=== PATIENT | female | born 1955 | race Caucasian/White ===

== ENCOUNTER 2018-02-16 21:04 | Emergency (ER) | payer MEDICAID ==
[2018-02-16] MEDS ORDERED: traMADol 50 MG Tab PO ONE (21:58)
--- NOTE | 2018-02-16 22:03 | EDM.PDOC ---
ED HPI GENERAL MEDICAL PROBLEM - General Chief Complaint: Lower Extremity Injury/Pain Stated Complaint: PAIN LT FOOT Time Seen by Provider: 02/16/18 21:52 - History of Present Illness INITIAL COMMENTS - FREE TEXT/NARRATIVE: HISTORY AND PHYSICAL: History of present illness: The patient is a 62-year-old female who follows in our clinic and presents with complaints of pain to the dorsal aspect of her foot for the last 2 weeks or so. She said she had a fall 4 weeks ago and her foot and backwards but she didn't have any pain in her foot just pain in her knee and she did not seek evaluation. She says the pain has been gradually increasing and is only on the dorsal aspect of her left foot and there are no neurosensory changes in the foot no toe pain no heel pain no ankle or proximal leg pain. She's not taking any cari-eqs-[id number] medication for pain. Patient does state that she has a history of arthritis wasn't sure if that was the cause. The patient denies other systemic complaints just fever chills chest pain shortness of breath or other joint discomfort currently. Review of systems: As per history of present illness and below otherwise all systems reviewed and negative. Past medical history: As per history of present illness and as reviewed below otherwise noncontributory. Surgical history: As per history of present illness and as reviewed below otherwise noncontributory. Social history: No reported history of drug or alcohol abuse. Family history: As per history of present illness and as reviewed below otherwise noncontributory. Physical exam: General: Well-developed well-nourished female who ambulated to the ED without difficulty. Vital signs are noted by me HEENT: Atraumatic, normocephalic, negative for conjunctival pallor or scleral icterus, mucous membranes moist, throat clear, neck supple, nontender, trachea midline. Lungs: Clear to auscultation, breath sounds equal bilaterally, chest nontender. Heart: S1S2, regular in rhythm no overt murmur Abdomen: Soft and rotund but nondistended slightly hypoactive bowel sounds Pelvis: Stable nontender. Genitourinary: Deferred. Rectal: Deferred. Extremities: Atraumatic with full range of motion of all extremities, there is some vague erythema on the dorsal aspect of the left foot without any palpable bony deformities crepitus ecchymosis but there is tenderness in this area. There is a small area of some localized soft tissue swelling that may be slightly mobile consistent with an early ganglion cyst it is not well-defined,, negative for cords or calf pain. Neurovascular unremarkable. Neuro: Awake, alert, oriented. Cranial nerves II through XII unremarkable. Cerebellum unremarkable. Motor and sensory unremarkable throughout. Exam nonfocal. Diagnostics: X-ray left foot Therapeutics: (Tramadol Patient defers a postop shoe Impression: Left foot pain, subacute Definitive disposition and diagnosis as appropriate pending reevaluation and review of above. 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: Musculoskeletal History: Reports: None Neurological History: Reports: None Psychiatric History: Reports: Depression Endocrine/Metabolic History: Reports: Diabetes, Type II, Hypothyroidism Hematologic History: Reports: None Immunologic History: Reports: None Oncologic (Cancer) History: Reports: Breast Dermatologic History: Reports: None - Infectious Disease History Infectious Disease History: Reports: None Social & Family History - Family History Family Medical History: Noncontributory - Tobacco Use Smoking Status *Q: Current Every Day Smoker Years of Tobacco use: 49 Packs/Tins Daily: 0.5 - Caffeine Use Caffeine Use: Reports: Coffee - Recreational Drug Use Recreational Drug Use: No Review of Systems - Review of Systems Review Of Systems: ROS reveals no pertinent complaints other than HPI. ED EXAM, GENERAL - Physical Exam Exam: See Below (see dictation) Course - Vital Signs Last Recorded V/S: Last Vital Signs Temp 36.1 C 02/16/18 21:35 Pulse 83 02/16/18 21:35 Resp 18 02/16/18 21:35 BP 141/72 H 02/16/18 21:35 Pulse Ox 95 02/16/18 21:35 - Orders/Labs/Meds Orders: Active Orders 24 hr Category Date Time Status Foot Comp Min 3V Lt [CR] Stat Exams 02/16/18 21:58 Taken Meds: Medications Discontinued Medications Generic Name Dose Route Start Last Admin Trade Name Farooq PRN Reason Stop Dose Admin Tramadol HCl 50 mg 02/16/18 21:58 02/16/18 22:20 Ultram PO 02/16/18 21:59 50 mg ONETIME ONE Administration Departure - Departure Time of Disposition: 22:37 Disposition: Home, Self-Care 01 Condition: Good Clinical Impression: Left foot pain - Discharge Information Referrals: Annalise Caraballo MD [Primary Care Provider] - Forms: ED Department Discharge Additional Instructions: The following information is given to patients seen in the emergency department who are being discharged to home. This information is to outline your options for follow-up care. We provide all patients seen in our emergency department with a follow-up referral. The need for follow-up, as well as the timing and circumstances, are variable depending upon the specifics of your emergency department visit. If you don't have a primary care physician on staff, we will provide you with a referral. We always advise you to contact your personal physician following an emergency department visit to inform them of the circumstance of the visit and for follow-up with them and/or the need for any referrals to a consulting specialist. The emergency department will also refer you to a specialist when appropriate. This referral assures that you have the opportunity for followup care with a specialist. All of these measure are taken in an effort to provide you with optimal care, which includes your followup. Under all circumstances we always encourage you to contact your private physician who remains a resource for coordinating your care. When calling for followup care, please make the office aware that this follow-up is from your recent emergency room visit. If for any reason you are refused follow-up, please contact the [facility] emergency department at and ask to speak to the emergency department charge nurse. [facility]- Podiatry [address] [place] [id number] Fax: [phone] Dr Benjamin Conti [address] [place] [address] [id number] [facility] Primary care- Internal Medicine and Family [address] [address] Try to avoid friction to this area and ice and elevate after wearing shoes or doing walking. Use [id number] Tylenol for pain and also use the tramadol you have been prescribed as needed but only take at home. This connect with one of our podiatrists for further care and evaluation and return to ER as needed and as discussed - My Orders Last 24 Hours: My Active Orders 02/16/18 21:58 Foot Comp Min 3V Lt [CR] Stat - Assessment/Plan Last 24 Hours: My Active Orders 02/16/18 21:58 Foot Comp Min 3V Lt [CR] Stat
[2018-02-17 04:03] VITALS: BP 148/75
--- NOTE | 2018-02-17 10:24 | CR ---
EXAM DATE: 02/16/18 PATIENT'S AGE: 62 Patient: KENRICK BANKS Facility: [place], [place] Site . Site : 1955 Study: XRay Extremity Left foot [id number]/3/2018 10:17:15 PM Ordering Physician: Carolynn Bai Final Report: Indication: Swelling and pain along the dorsum of the foot, no injury Technique: Three views left foot Comparison: None Findings: Bones: Alignment is normal. No fractures or bone lesions. There is an inferior calcaneal enthesophyte. Joint spaces: Unremarkable. Soft tissues: Unremarkable. Impression: No acute abnormality. Dictated by Treva Baldwin MD @ Feb 16 2018 10:29PM (Electronic Signature) Report Signed by Proxy. AYESHA
== END 2018-02-16 23:05 | disposition home or self-care (01) ==
LOC: MW.ED 21:04
DX: M79.672 Pain in left foot (principal); E11.9 Type 2 diabetes mellitus without complications; E03.9 Hypothyroidism, unspecified; F32.9 Major depressive disorder, single episode, unspecified; F17.210 Nicotine dependence, cigarettes, uncomplicated; Z88.8 Allergy status to other drugs, medicaments and biological substances; Z91.048 Other nonmedicinal substance allergy status; Z79.84 Long term (current) use of oral hypoglycemic drugs
CPT/HCPCS: 73630; 99283; A9270

== ENCOUNTER 2019-03-03 09:53 | Day surgery (SDC) | payer MEDICARE, MEDICAID ==
[~2019-03-03 09:53] MED LIST: Lactated Ringers 1,000 ML IV SCH
--- NOTE | 2019-03-03 11:21 | PCM.PREANE ---
Preanesthetic Assessment - Anesthesia/Transfusion/Family Hx Anesthesia History: Prior Anesthesia Without Reaction Family History of Anesthesia Reaction: No Transfusion History: No Prior Transfusion(s) - Review of Systems General: No Symptoms Pulmonary: No Symptoms Cardiovascular: No Symptoms Neurological: No Symptoms Other: Reports: None - Physical Assessment NPO Status Date: 03/02/19 O2 Sat by Pulse Oximetry: 95 Respiratory Rate: 16 Vital Signs: Last Vital Signs Temp 97.5 F 03/03/19 10:08 Pulse 80 03/03/19 10:08 Resp 16 03/03/19 10:08 BP 158/82 H 03/03/19 10:08 Pulse Ox 95 03/03/19 10:08 Height: 5 ft 2 in Weight: 96.162 kg ASA Class: 2 Mental Status: Alert & Oriented x3 Airway Class: Mallampati = 2 Dentition: Reports: Normal Dentition ROM/Head Extension: Full Lungs: Clear to Auscultation, Normal Respiratory Effort Cardiovascular: Regular Rate, Regular Rhythm - Lab Values: Laboratory Last Values POC Glucose 201 mg/dL (60-110) H 03/03/19 10:25 - Allergies Allergies/Adverse Reactions: Allergies Allergy/AdvReac Type Severity Reaction Status Date / Time No Known Allergies Allergy Verified 03/02/19 07:34 - Blood Blood Available: No - Anesthesia Plan Pre-Op Medication Ordered: None - Acknowledgements Anesthesia Type Planned: MAC Pt an Appropriate Candidate for the Planned Anesthesia: Yes Alternatives and Risks of Anesthesia Discussed w Pt/Guardian: Yes Pt/Guardian Understands and Agrees with Anesthesia Plan: Yes Additional Comments: has cervical stenosis/myelopathy, allow pt to position self on side prior to anesthesia PreAnesthesia Questionnaire HEENT History: Reports: Other (See Below) Other HEENT History: top and bottom dentures, reading glasses Cardiovascular History: Reports: Other (See Below) Other Cardiovascular History: takes lisinopril to protect her kidneys due to diabetes Respiratory History: Reports: Sleep Apnea Other Respiratory History: uses CPAP Gastrointestinal History: Reports: Chronic Diarrhea, Hepatitis Other Gastrointestinal History: states hepatitis in her teens, not sure what kind Genitourinary History: Reports: None 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: Musculoskeletal History: Reports: Arthritis Other Musculoskeletal History: DJD Neurological History: Reports: Concussion, Other (See Below) Other Neuro History: essential tremors-left hand Psychiatric History: Reports: Depression Endocrine/Metabolic History: Reports: Diabetes, Type II, Hypothyroidism, Obesity /BMI 30+ Hematologic History: Reports: None Immunologic History: Reports: None Oncologic (Cancer) History: Reports: Breast Dermatologic History: Reports: None - Infectious Disease History Infectious Disease History: Reports: None - Past Surgical History Head Surgeries/Procedures: Reports: None HEENT Surgical History: Reports: None Cardiovascular Surgical History: Reports: None Respiratory Surgical History: Reports: None GI Surgical History: Reports: None Female Surgical History: Reports: Breast Biopsy, Hysterectomy Other Female Surgeries/Procedures: left breast lumpectomy for breast cancer Endocrine Surgical History: Reports: None Neurological Surgical History: Reports: None Musculoskeletal Surgical History: Reports: None Oncologic Surgical History: Reports: Biopsy of Breast Dermatological Surgical History: Reports: None - SUBSTANCE USE Smoking Status *Q: Current Every Day Smoker Tobacco Use Within Last Twelve Months: Cigarettes Recreational Drug Use History: No - HOME MEDS Home Medications: Home Meds metFORMIN HCl [Metformin HCl] 2 tab PO TID 07/22/15 [History] Amitriptyline HCl 50 mg PO BEDTIME 03/02/19 [History] Cetirizine [ZyrTEC] 10 mg PO DAILY 03/02/19 [History] Cider Vinegar [Apple Cider Vinegar] 600 mg PO DAILY 03/02/19 [History] Levothyroxine Sodium [Synthroid] 100 mcg PO DAILY 03/02/19 [History] Lisinopril 5 mg PO DAILY 03/02/19 [History] [place]-3/DHA/Epa/Fish Oil [[place]-3 Fish Oil 1,400 MG Sfgl] 1 tab PO DAILY [History] Turmeric Root Extract [Turmeric] 500 mg PO DAILY 03/02/19 [History] - CURRENT (IN HOUSE) MEDS Current Meds: Current Medications Lactated Ringer's (Ringers, Lactated) 1,000 mls @ 125 mls/hr IV ASDIRECTED [facility] Last Admin: 03/03/19 10:33 Dose: 125 mls/hr
[2019-03-03] MEDS ORDERED: Midazolam 1 MG/ML 2 ML SDV ONE (11:47)
[2019-03-03] MEDS ORDERED: Propofol 200 MG/20 ML SDV ONE (11:47)
[2019-03-03] MEDS ORDERED: fentaNYL 100 MCG/2 ML SDV ONE (11:48)
--- NOTE | 2019-03-03 13:47 | PCM.POSTAN ---
POST ANESTHESIA ASSESSMENT - MENTAL STATUS Mental Status: Alert, Oriented - RESPIRATORY Respiratory Status: Respiratory Rate WNL, Airway Patent, O2 Saturation Stable - CARDIOVASCULAR CV Status: Pulse Rate WNL, Blood Pressure Stable - GASTROINTESTINAL GI Status: No Symptoms - POST OP HYDRATION Hydration Status: Adequate & Stable
[2019-03-03 14:00] VITALS: BP 145/82
--- NOTE | 2019-03-03 14:09 | PCM48HPAN ---
Post Anesthesia Note - EVALUATION WITHIN 48HRS OF ANESTHETIC Vital Signs in Normal Range: Yes Patient Participated in Evaluation: Yes Respiratory Function Stable: Yes Airway Patent: Yes Cardiovascular Function Stable: Yes Hydration Status Stable: Yes Pain Control Satisfactory: Yes Nausea and Vomiting Control Satisfactory: Yes Mental Status Recovered: Yes Resp Rate: 16
--- NOTE | 2019-03-03 17:17 | PCM.OPNOTE ---
- General Post-Op/Procedure Note Date of Surgery/Procedure: 03/03/19 Operative Procedure(s): colonoscopy Findings: see dict [id number] Pre Op Diagnosis: scrn colonoscopy Post-Op Diagnosis: diverticulosis Anesthesia Technique: Moderate Sedation Primary Surgeon: Justin Feliciano Complications: None Condition: Good Free Text/Narrative:: Intake & Output 03/03/19 03/03/19 03/03/19 06:59 14:59 22:59 Intake Total 1250 Balance 1250
--- NOTE | 2019-03-04 02:07 | OR ---
SURGEON: Justin Feliciano MD DATE OF PROCEDURE: 03/03/2019 PREOPERATIVE DIAGNOSIS: Screening colonoscopy. POSTOPERATIVE DIAGNOSIS: Diverticulosis. PROCEDURE PERFORMED: Colonoscopy. COMPLICATIONS: None. DESCRIPTION OF PROCEDURE: The patient was taken to the endoscopy room. A time out was called, patient identified, and procedure identified. Diprivan was then administrated. Patient went from awake to sleep, hearing doctor talking or door closing is normal. Perineum inspection and digital examination were then performed. A well- lubricated colonoscope was gently inserted through the rectum, advanced past the rectosigmoid junction, the descending colon, splenic flexure, transverse colon, hepatic flexure, ascending colon, arrived to the cecum. Cecum was identified as dictated in the finding. Then the scope was carefully withdrawn while attention was paid to the mucosal surface for any abnormality. Air will be sucked out during the scope withdrawal. At the rectum, retroflexed to examine any rectal diseases, fistula or hemorrhoids. Patient tolerated procedure well. There were no intraoperative complications, and Dr. Feliciano was present throughout the whole procedure. FINDINGS: 1. The patient is easily sedated with TUBE [employer]ILDER AIRPLANE and Diprivan. The patient is soundly snoring. 2. Bowel prep is not acceptable. The patient does have some semiformed stool and at the same time with large amount, I mean predominant vegetable residue in the colon and clogged up the scope and despite irrigation for over 5 minutes still a large amount of residual residue in the proximal part of the colon from the cecum all the way to the hepatic flexure. Even irrigation cannot handle this mucosa coupled by the residual fiber. This is an unacceptable bowel prep. The patient need to repeat the colonoscopy. From the compromised study, cecum is indicated by ileocecal fold, one-to- one indentation, appendiceal orifice. Light emittance is not observed. Although, the cecum can be reached, but the mucosal examination is completely compromised because of the large amount of vegetable residue. The patient has moderate diverticulosis on the left colon. No signs or symptoms of diverticulitis, polyp, mass, large growth, AV malformation, and bleeding is not observed. Again, this is a compromised study, you know whatever we can observe, we can observe and whatever we cannot like the semiformed stool or residual residue, we will not be able to examine. The patient need to come back to have another colonoscopy in 6 to 12 months. The patient does not have external hemorrhoids. Does not have internal hemorrhoids. LIANS / RHODA /[id number]
== END 2019-03-03 14:10 | disposition home or self-care (01) ==
LOC: MW.SDS 09:53
PROVIDERS: ATTEND Surgery
DX: K57.30 Diverticulosis of large intestine without perforation or abscess without bleeding (principal); F32.9 Major depressive disorder, single episode, unspecified; H40.9 Unspecified glaucoma; E78.5 Hyperlipidemia, unspecified; I10 Essential (primary) hypertension; E03.9 Hypothyroidism, unspecified; Z79.899 Other long term (current) drug therapy; Z79.84 Long term (current) use of oral hypoglycemic drugs; G47.33 Obstructive sleep apnea (adult) (pediatric); Z99.89 Dependence on other enabling machines and devices; E11.42 Type 2 diabetes mellitus with diabetic polyneuropathy; F17.210 Nicotine dependence, cigarettes, uncomplicated
CPT/HCPCS: 45378; 82962; J2250; J2704; J3010; J7120

== ENCOUNTER 2020-09-23 16:14 | Emergency (ER) | payer MEDICARE, MEDICAID ==
[2020-09-23] MEDS ORDERED: Acetaminophen/oxyCODONE 325-5 MG Tab PO ONE (16:54)
[2020-09-23] MEDS ORDERED: Ketorolac 15 MG/ML SDV IM ONE (16:55)
--- NOTE | 2020-09-23 17:00 | EDM.PDOC ---
ED HPI GENERAL MEDICAL PROBLEM - General Chief Complaint: Upper Extremity Injury/Pain Stated Complaint: FELL AND BROKE HER RIGHT ARM Time Seen by Provider: 09/23/20 16:23 Source of Information: Reports: Patient History Limitations: Reports: No Limitations - History of Present Illness INITIAL COMMENTS - FREE TEXT/NARRATIVE: History of present illness: [Patient is 65-year-old female who presents after a fall earlier today. She slipped on the ice and landed on her left arm concerned that she broke her left wrist. She denies any major head trauma or loss of consciousness. Denies chest pain or shortness of breath. Was feeling well prior to the fall. Has no other complaints of pain anywhere else. Has not taken any pain medicine prior to arrival.] Review of systems: As per history of present illness and below otherwise all systems reviewed and negative. Past medical history: As per history of present illness and as reviewed below otherwise noncontributory. Surgical history: As per history of present illness and as reviewed below otherwise noncontributory. Social history: No reported history of drug or alcohol abuse. Family history: As per history of present illness and as reviewed below otherwise noncontributory. Physical exam: General: Awake, alert, no acute distress, A&O X3. HEENT: Atraumatic, normocephalic, pupils reactive, negative for conjunctival pallor or scleral icterus, mucous membranes moist, mask on. Lungs: Clear to auscultation, breath sounds equal bilaterally, chest nontender. Heart: RRR, normal S1S2, no JVD. Abdomen: Soft, nondistended, nontender. Pelvis: Stable nontender. Genitourinary: Deferred. Rectal: Deferred. Extremities: Patient with swelling and tenderness to palpation with mild deformity involving the left wrist. The left hand is neurovascular intact. No evidence for open fracture, no skin tenting. Neuro: Motor and sensory grossly intact throughout. Exam nonfocal. Diagnostics: [] Therapeutics: [] Impression: [] Plan: [] Definitive disposition and diagnosis as appropriate pending reevaluation and review of above. - Related Data Allergies Allergy/AdvReac Type Severity Reaction Status Date / Time No Known Allergies Allergy Verified 09/23/20 16:56 Home Meds: Home Meds metFORMIN HCl [Metformin HCl] 2 tab PO TID 07/22/15 [History] Amitriptyline HCl 50 mg PO BEDTIME 03/02/19 [History] Cetirizine [ZyrTEC] 10 mg PO DAILY 03/02/19 [History] Cider Vinegar [Apple Cider Vinegar] 600 mg PO DAILY 03/02/19 [History] Levothyroxine Sodium [Synthroid] 100 mcg PO DAILY 03/02/19 [History] Lisinopril 5 mg PO DAILY 03/02/19 [History] Dyer-3/DHA/Epa/Fish Oil [Dyer-3 Fish Oil 1,400 MG Sfgl] 1 tab PO DAILY 0 03/02/19 [History] Turmeric Root Extract [Turmeric] 500 mg PO DAILY 03/02/19 [History] Past Medical History HEENT History: Reports: Other (See Below) Other HEENT History: top and bottom dentures, reading glasses Cardiovascular History: Reports: Other (See Below) Other Cardiovascular History: takes lisinopril to protect her kidneys due to diabetes Respiratory History: Reports: Sleep Apnea Other Respiratory History: uses CPAP Gastrointestinal History: Reports: Chronic Diarrhea, Hepatitis Other Gastrointestinal History: states hepatitis in her teens, not sure what kind Genitourinary History: Reports: None 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: Musculoskeletal History: Reports: Arthritis Other Musculoskeletal History: DJD Neurological History: Reports: Concussion, Other (See Below) Other Neuro History: essential tremors-left hand Psychiatric History: Reports: Depression Endocrine/Metabolic History: Reports: Diabetes, Type II, Hypothyroidism, Obesity/BMI 30+ Hematologic History: Reports: None Immunologic History: Reports: None Oncologic (Cancer) History: Reports: Breast Dermatologic History: Reports: None - Infectious Disease History Infectious Disease History: Reports: None - Past Surgical History Head Surgeries/Procedures: Reports: None HEENT Surgical History: Reports: None Cardiovascular Surgical History: Reports: None Respiratory Surgical History: Reports: None GI Surgical History: Reports: None Female Surgical History: Reports: Breast Biopsy, Hysterectomy Other Female Surgeries/Procedures: left breast lumpectomy for breast cancer Endocrine Surgical History: Reports: None Neurological Surgical History: Reports: None Musculoskeletal Surgical History: Reports: None Oncologic Surgical History: Reports: Biopsy of Breast Dermatological Surgical History: Reports: None Social & Family History - Family History Family Medical History: Noncontributory - Caffeine Use Caffeine Use: Reports: Coffee Review of Systems - Review of Systems Review Of Systems: Comprehensive ROS is negative, except as noted in HPI. ED EXAM, GENERAL - Physical Exam Exam: See Below (see h and p) ED TRAUMA EXTREMITY PROCEDURES - Joint Reduction Left Wrist Sedation: Hematoma/Fracture Block Local Anesthesia - Lidocaine (Xylocaine): 1% Plain Local Anesthetic Volume: Other (10 mL) Pre-Procedure NV Status: Normal Post-Procedure NV Status: Normal Technique: Traction/Counter Traction Number of Attempts: 1 Post-Reduction Imaging: Acceptably Reduced Joint Reduction Complications: No - Splinting Left Upper Extremity Splint Site: left wrist Pre-Procedure NV Status: Normal Post-Procedure NV Status: Normal Splint Material: Fiberglass Splint Design: Sugar Tong Applied & Form Fitted By: Provider Provider Post-Splint Application NV Check: NV Status Normal, Good Position Complications: No - Additional/Other Procedure(s) Other (Free Text) Procedure(s): Hematoma block performed for the left distal radius fracture. The area was cleansed with alcohol, fracture site palpated, injected 10 mL of lidocaine, 1% without epi. Patient tolerated procedure well. Remains neurovascular intact before and after. Achieved successful anesthesia and pain relief. Melecio Spears MD Course - Vital Signs Text/Narrative:: Patient is feeling better after getting hematoma block and oral Percocet here in the ED. She tolerated reduction with finger traps well. Splint applied. Provided her with Ortho follow-up. Told her she would need a cast in the near future. She understands the plan and is agreeable with it. Left arm is neurovascular intact on reassessment prior to discharge. Return precautions provided otherwise stable at discharge. Last Recorded V/S: Last Vital Signs Temp 36.2 C 09/23/20 16:58 Pulse 82 09/23/20 16:58 Resp 20 09/23/20 16:58 BP 107/54 L 09/23/20 16:58 Pulse Ox 94 L 09/23/20 16:58 - Orders/Labs/Meds Orders: Active Orders 24 hr Category Date Time Status DME for Discharge [COMM] Stat Oth 09/23/20 17:43 Ordered Meds: Medications Discontinued Medications Generic Name Dose Route Start Last Admin Trade Name Freq PRN Reason Stop Dose Admin Ketorolac Tromethamine 15 mg 09/23/20 16:55 09/23/20 17:30 Toradol IM 09/23/20 16:56 15 mg ONETIME ONE Administration Lidocaine HCl 10 ml 09/23/20 17:05 09/23/20 17:34 Xylocaine 1% INJECT 09/23/20 17:06 Not Given ONETIME ONE Lidocaine HCl Confirm 09/23/20 17:11 09/23/20 17:34 Xylocaine-Mpf 1% Administered 09/23/20 17:12 Not Given Dose 10 ml .ROUTE .STK-MED ONE Lidocaine HCl 10 ml 09/23/20 17:28 09/23/20 17:30 Xylocaine-Mpf 1% INJECT 09/23/20 17:29 10 ml ONETIME ONE Administration Oxycodone/Acetaminophen 1 tab 09/23/20 16:54 Percocet 325-5 Mg PO 09/23/20 16:55 ONETIME ONE Departure - Departure Time of Disposition: 17:58 Disposition: Home, Self-Care 01 Condition: Good Clinical Impression: Distal radius fracture, left - Discharge Information Instructions: Radial Fracture Referrals: Annalise Caraballo MD [Primary Care Provider] - Forms: ED Department Discharge Additional Instructions: [facility] - [facility] [address], [address] [place] [address] Follow-up with orthopedic surgery. Take all medications as prescribed. Return to the ER with any new or worsening symptoms. The following information is given to patients seen in the emergency department who are being discharged to home. This information is to outline your options for follow-up care. We provide all patients seen in our emergency department with a follow-up referral. The need for follow-up, as well as the timing and circumstances, are variable depending upon the specifics of your emergency department visit. If you don't have a primary care physician on staff, we will provide you with a referral. We always advise you to contact your personal physician following an emergency department visit to inform them of the circumstance of the visit and for follow-up with them and/or the need for any referrals to a consulting specialist. The emergency department will also refer you to a specialist when appropriate. This referral assures that you have the opportunity for follow-up care with a specialist. All of these measure are taken in an effort to provide you with optimal care, which includes your follow-up. Under all circumstances we always encourage you to contact your private physician who remains a resource for coordinating your care. When calling for follow-up care, please make the office aware that this follow-up is from your recent emergency room visit. If for any reason you are refused follow-up, please contact the [facility] Emergency Department at and asked to speak to the emergency department charge nurse. Sepsis Event Note (ED) - Focused Exam Vital Signs: Vital Signs Temp Pulse Resp BP Pulse Ox 09/23/20 16:58 36.2 C 82 20 107/54 L 94 L - My Orders Last 24 Hours: My Active Orders 09/23/20 17:43 DME for Discharge [COMM] Stat - Assessment/Plan Last 24 Hours: My Active Orders 09/23/20 17:43 DME for Discharge [COMM] Stat
[2020-09-23 17:05] VITALS: BP 107/54; PULSE 82
[2020-09-23] MEDS ORDERED: Lidocaine 1% 10 ML MDV INJECT ONE (17:05)
--- NOTE | 2020-09-23 17:29 | CR ---
INDICATION: Fall. TECHNIQUE: Two views left forearm. IMPRESSION: Impacted dorsally angulated comminuted likely intra-articular fracture through the distal radius. Fracture appears to extend into the radiocarpal joint at the scaphoid fossa. Designated imaging of the wrist recommended. Proximal radius and ulna are intact. No ulnar fracture appreciated. Dictated by Oneil Byrd MD @ Sep 23 2020 5:26PM Signed by Dr. Oneil Byrd @ Sep 23 2020 5:29PM
--- NOTE | 2020-09-23 18:21 | CR ---
INDICATION: Postreduction follow up fracture. COMPARISON: Same date 1700 hours. IMPRESSION: Persistent dorsal angulation and mild impaction of the radial fracture with intra-articular extension through scaphoid and lunate fossa. Tip of the ulnar styloid fracture slightly radially displaced. Fiberglass cast. Mild diffuse osteopenia. Dictated by Oneil Byrd MD @ Sep 23 2020 6:19PM Signed by Dr. Oneil Byrd @ Sep 23 2020 6:20PM
== END 2020-09-23 18:45 | disposition home or self-care (01) ==
LOC: MW.ED 16:14
DX: S52.572A Other intraarticular fracture of lower end of left radius, initial encounter for closed fracture (principal); M19.90 Unspecified osteoarthritis, unspecified site; F32.9 Major depressive disorder, single episode, unspecified; E11.9 Type 2 diabetes mellitus without complications; E03.9 Hypothyroidism, unspecified; E66.9 Obesity, unspecified; Z90.710 Acquired absence of both cervix and uterus; Z68.33 Body mass index [BMI] 33.0-33.9, adult; Z79.84 Long term (current) use of oral hypoglycemic drugs; Z79.899 Other long term (current) drug therapy; W00.0XXA Fall on same level due to ice and snow, initial encounter
CPT/HCPCS: 25605; 73090; 73110; 96372; 99283; J1885; J2001

== ENCOUNTER 2020-10-01 10:48 | Day surgery (SDC) | payer MEDICARE, MEDICAID ==
[~2020-10-01 10:48] MED LIST changes: +Bupivacaine 0.5% 10 ML SDV ONE; +ceFAZolin 2 GM in Premix Bag 1 BAG IV SCH
--- NOTE | 2020-10-01 11:39 | PCM.PREANE ---
Preanesthetic Assessment - Anesthesia/Transfusion/Family Hx Anesthesia History: Prior Anesthesia Without Reaction Family History of Anesthesia Reaction: No Transfusion History: No Prior Transfusion(s) Intubation History: Unknown - Review of Systems General: No Symptoms Pulmonary: No Symptoms Cardiovascular: No Symptoms Gastrointestinal: No Symptoms Neurological: No Symptoms Other: Reports: None - Physical Assessment Vital Signs: Last Vital Signs Temp 36.4 C 10/01/20 11:20 Pulse 65 10/01/20 11:20 Resp 16 10/01/20 11:20 BP 137/61 10/01/20 11:20 Pulse Ox 91 L 10/01/20 11:20 Height: 5 ft 4 in Weight: 87.09 kg ASA Class: 3 Mental Status: Alert & Oriented x3 Airway Class: Mallampati = 2 Dentition: Reports: Dentures (upper and lower) Thyro-Mental Finger Breadths: 3 Mouth Opening Finger Breadths: 2 (small mouth) ROM/Head Extension: Limited/Partial Lungs: Normal Respiratory Effort, Decreased Breath Sounds, Crackles Cardiovascular: Regular Rate, Regular Rhythm - Allergies Allergies/Adverse Reactions: Allergies Allergy/AdvReac Type Severity Reaction Status Date / Time No Known Allergies Allergy Verified 09/27/20 12:49 - Blood Blood Available: No - Anesthesia Plan Pre-Op Medication Ordered: None - Acknowledgements Anesthesia Type Planned: General Anesthesia Pt an Appropriate Candidate for the Planned Anesthesia: Yes Alternatives and Risks of Anesthesia Discussed w Pt/Guardian: Yes Pt/Guardian Understands and Agrees with Anesthesia Plan: Yes PreAnesthesia Questionnaire HEENT History: Reports: Other (See Below) Other HEENT History: top and bottom dentures, reading glasses Cardiovascular History: Reports: Other (See Below) Other Cardiovascular History: takes lisinopril to protect her kidneys due to diabetes Respiratory History: Reports: Sleep Apnea, Other (See Below) (sats 91% on room air today) Other Respiratory History: uses CPAP Gastrointestinal History: Reports: Diverticulosis, Hepatitis Other Gastrointestinal History: states hepatitis in her teens, not sure what kind, hx diverticulitis Genitourinary History: Reports: 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: Musculoskeletal History: Reports: Arthritis, Back Pain, Chronic Neurological History: Reports: Concussion, Neuropathy, Peripheral, Other (See Below) Other Neuro History: essential tremors-left hand Psychiatric History: Reports: Depression, Suicide Attempt Endocrine/Metabolic History: Reports: Diabetes, Type II, Hypothyroidism, Obesity/BMI 30+ (BMI 33.0) Hematologic History: Reports: None Immunologic History: Reports: None Oncologic (Cancer) History: Reports: Breast (lumpectomy, radiation and chemo) Dermatologic History: Reports: None - Infectious Disease History Infectious Disease History: Reports: None Other Infectious Disease History: Chicken pox and Mumps as a child - Past Surgical History Head Surgeries/Procedures: Reports: None HEENT Surgical History: Reports: Naso-Sinus Surgery Cardiovascular Surgical History: Reports: None Respiratory Surgical History: Reports: None GI Surgical History: Reports: Colonoscopy Female Surgical History: Reports: Breast Biopsy, Hysterectomy Other Female Surgeries/Procedures: left breast lumpectomy for breast cancer Endocrine Surgical History: Reports: None Neurological Surgical History: Reports: None Musculoskeletal Surgical History: Reports: None Oncologic Surgical History: Reports: Biopsy of Breast Other Oncologic Surgeries/Procedures: chemo & radiation Dermatological Surgical History: Reports: None - SUBSTANCE USE Tobacco Use Status *Q: Current Every Day Tobacco User Tobacco Use Within Last Twelve Months: Cigarettes - HOME MEDS Home Medications: Home Meds metFORMIN HCl [Metformin HCl] 1,000 mg PO BID 07/22/15 [History] Levothyroxine Sodium [Synthroid] 100 mcg PO DAILY 03/02/19 [History] Lisinopril 5 mg PO DAILY 03/02/19 [History] Acetaminophen [Tylenol Extra Strength] 2 tab PO ASDIRECTED PRN 09/27/20 [History] Aspirin [Adult Aspirin Regimen] 81 mg PO BEDTIME 09/27/20 [History] traZODone HCl [Trazodone HCl] 300 mg PO BEDTIME 09/27/20 [History] - CURRENT (IN HOUSE) MEDS Current Meds: Current Medications Lactated Ringer's (Ringers, Lactated) 1,000 mls @ 100 mls/hr IV ASDIRECTED KARUNA Last Admin: 10/01/20 11:32 Dose: 100 mls/hr Documented by: Cefazolin Sodium/Dextrose 2 gm (/ Premix) 50 mls @ 100 mls/hr IV ONCALL KARUNA Discontinued Medications Bupivacaine HCl (Sensorcaine-Mpf 0.5%) Confirm Administered Dose 10 ml .ROUTE .STK-MED ONE Stop: 10/01/20 07:51
[2020-10-01] MEDS ORDERED: Bupivacaine 0.25% 10 ML SDV ONE (12:37)
[2020-10-01] MEDS ORDERED: fentaNYL 100 MCG/2 ML SDV ONE ×2 (12:47→13:54)
[2020-10-01] MEDS ORDERED: Ondansetron 4 MG/2 ML SDV ONE (12:49)
[2020-10-01] MEDS ORDERED: Lidocaine 2% 5 ML SDV ONE (12:49)
[2020-10-01] MEDS ORDERED: Propofol 200 MG/20 ML SDV ONE (12:49)
[2020-10-01] MEDS ORDERED: Glycopyrrolate 0.2 MG/ML SDV ONE (12:49)
[2020-10-01] MEDS ORDERED: Midazolam 1 MG/ML 2 ML SDV ONE (12:49)
[2020-10-01] MEDS ORDERED: Ketorolac 30 MG/ML SDV ONE (12:49)
[2020-10-01] MEDS ORDERED: Sodium Chloride 0.9% 20 ML ONE (13:31)
[2020-10-01] MEDS ORDERED: ceFAZolin 1 GM Vial ONE (13:31)
--- NOTE | 2020-10-01 14:59 | PCM.OPNOTE ---
- General Post-Op/Procedure Note Date of Surgery/Procedure: 10/01/20 Operative Procedure(s): Open reduction and internal fixation of left three-part distal radius fracture Findings: Left displaced, angulated 3 part distal radius fracture Pre Op Diagnosis: Left displaced, angulated 3 part distal radius fracture Post-Op Diagnosis: Left displaced, angulated 3 part distal radius fracture Anesthesia Technique: General LMA Primary Surgeon: Lm Regalado Acidity Tester: Anu Perez Acidity Tester: Deja Garza Reason Acidity Tester Was Necessary: Retraction and hand positioning. Pathology: None EBL in mLs: 5 Complications: None Free Text/Narrative:: Patient sustained a left displaced, angulated 3 part distal radius fracture. She was seen in clinic. We discussed the risks and benefits of treatment including nonoperative management, close reduction and percutaneous pinning, and open reduction and internal fixation. Patient elected to proceed with open reduction and internal fixation. Patient scented to proceed with surgery. Patient was medically cleared for surgery. Patient was taken to the operating room. After adequate general anesthesia, she remained in a supine position with a hand table. The left hand and upper extremity were prepped draped in usual sterile manner. A volar incision was made over the distal radius and extended to the wrist crease. Skin was incised with a scalpel. Subcutaneous tissue was incised electrocautery. The flexor carpi radialis was identified and the tendon sheath was opened with the scissors, the tendon retracted radially, and then dissection carried down to the distal radius through the pronator quadratus. Elevator was used to identify the fracture. The fracture site was reduced nearly anatomically. A Erica volar locking distal radius plate was applied. A conventional bicortical screw was placed in the slot proximal to the fracture. 2 locking screws were placed into the distal fragment. C-arm was brought in and noted to have excellent reduction and alignment with no intra-articular step-offs. Additional locking screws were placed in the distal fragment and 2 additional bicortical screws in the shaft were also placed. C arm again noted excellent position of the plate and screws with no screw penetration and no intra-articular step-offs. The wounds were irrigated. The pronator quadratus was repaired over the plate. The tendon sheath was repaired over the flexor carpi radialis tendon. Subcutaneous tissue was closed with interrupted 2-0 Vicryl suture. Skin was closed with running subcuticular Monocryl suture. A sterile dressing and volar splint were applied. Patient was accompanied to the recovery room in stable condition. Pain management: Ibuprofen and acetaminophen, oxycodone for breakthrough pain which should be minimized because of her COPD and sleep apnea. She does use a CPAP at home. Antibiotic prophylaxis: Not indicated for outpatient procedure. Venous thromboembolism prophylaxis: Not indicated for upper extremity procedure. Restrictions: Patient is nonweightbearing on her left upper extremity for 3 months. She will be in the volar splint for 2 weeks until she is seen for her postoperative check and then can be switched to a removable splint. She should begin hand therapy at 6 weeks for range of motion immobilization of her wrist and hand.
[2020-10-01] MEDS ORDERED: Acetaminophen 1,000 MG in Premix Bag 1 BAG IV ONE (15:20)
--- NOTE | 2020-10-01 15:42 | PCM.POSTAN ---
POST ANESTHESIA ASSESSMENT - MENTAL STATUS Mental Status: Alert, Oriented - VITAL SIGNS Vital Signs: Last Vital Signs Temp 36.8 C 10/01/20 15:04 Pulse 83 10/01/20 15:35 Resp 18 10/01/20 15:35 BP 179/78 H 10/01/20 15:35 Pulse Ox 91 L 10/01/20 15:35 - RESPIRATORY Respiratory Status: Respiratory Rate WNL, Airway Patent, O2 Saturation Stable Free Text/Narrative:: no resp complications - CARDIOVASCULAR CV Status: Pulse Rate WNL, Blood Pressure Stable - GASTROINTESTINAL GI Status: No Symptoms - PAIN Pain Score: 5 - POST OP HYDRATION Hydration Status: Adequate & Stable
[2020-10-01] MEDS ORDERED: oxyCODONE 5 MG Tab PO ONE (16:07)
--- NOTE | 2020-10-01 16:45 | PCM48HPAN ---
Post Anesthesia Note - EVALUATION WITHIN 48HRS OF ANESTHETIC Vital Signs in Normal Range: Yes Patient Participated in Evaluation: Yes Respiratory Function Stable: Yes Airway Patent: Yes Cardiovascular Function Stable: Yes Hydration Status Stable: Yes Pain Control Satisfactory: Yes Nausea and Vomiting Control Satisfactory: Yes Mental Status Recovered: Yes Vital Signs: Last Vital Signs Temp 36.2 C 10/01/20 15:40 Pulse 62 10/01/20 15:55 Resp 18 10/01/20 15:55 BP 177/74 H 10/01/20 15:55 Pulse Ox 93 L 10/01/20 15:55
[2020-10-01 17:24] VITALS: BP 152/70; PULSE 56
--- NOTE | 2020-10-03 13:31 | CR ---
INDICATION: Fracture. TECHNIQUE: Intraoperative C-arm fluoroscopy. IMPRESSION: Intraoperative C-arm fluoroscopy was provided. Fluoroscopy time 3.4 seconds. Five images were captured. Dictated by Markus Chen MD @ Oct 03 2020 1:29PM Signed by Dr. Markus Chen @ Oct 03 2020 1:30PM
== END 2020-10-01 17:10 | disposition home or self-care (01) ==
LOC: MW.SDS 10:48
PROVIDERS: ATTEND Orthopaedic Surgery
DX: S52.572A Other intraarticular fracture of lower end of left radius, initial encounter for closed fracture (principal); E03.9 Hypothyroidism, unspecified; G47.33 Obstructive sleep apnea (adult) (pediatric); F32.9 Major depressive disorder, single episode, unspecified; G47.00 Insomnia, unspecified; F41.9 Anxiety disorder, unspecified; E11.3299 Type 2 diabetes mellitus with mild nonproliferative diabetic retinopathy without macular edema, unspecified eye; E78.5 Hyperlipidemia, unspecified; E66.9 Obesity, unspecified; E11.42 Type 2 diabetes mellitus with diabetic polyneuropathy; F17.210 Nicotine dependence, cigarettes, uncomplicated; Z79.890 Hormone replacement therapy; Z79.84 Long term (current) use of oral hypoglycemic drugs; Z79.899 Other long term (current) drug therapy; Z98.890 Other specified postprocedural states; Z68.33 Body mass index [BMI] 33.0-33.9, adult
CPT/HCPCS: 25609; 76000; A9270; J0131; J0690; J1885; J2001; J2250; J2405; J2704; J3010; J3490; J7120; 01830; 23615; C1713

== ENCOUNTER 2021-10-16 16:38 | Emergency (ER) | payer MEDICARE, MEDICAID ==
--- NOTE | 2021-10-16 17:09 | EDM.PDOC ---
ED HPI GENERAL MEDICAL PROBLEM - General Chief Complaint: Gastrointestinal Problem Stated Complaint: CONSTIPATION Time Seen by Provider: 10/16/21 16:55 Source of Information: Reports: Patient History Limitations: Reports: No Limitations - History of Present Illness INITIAL COMMENTS - FREE TEXT/NARRATIVE: Patient is a 66-year-old female who presents today for constipation. Says she has not had a bowel movement in the past 6 days. She tried aolv-[id number] enemas and laxatives without much relief. She got concerned but she no longer passing gas. Feels reports that it hurts when she eats food. Patient denies any surgical abdomen states she occasionally has constipation. Denies any urinary problem fever chills or other complaints. abdomen Pain Score (Numeric/FACES): 9 - Related Data Allergies Allergy/AdvReac Type Severity Reaction Status Date / Time No Known Allergies Allergy Verified 10/16/21 16:58 Home Meds: Home Meds metFORMIN HCl [Metformin HCl] 1,000 mg PO BID 07/22/15 [History] Levothyroxine Sodium [Synthroid] 100 mcg PO DAILY 03/02/19 [History] Lisinopril 5 mg PO DAILY 03/02/19 [History] Acetaminophen [Tylenol Extra Strength] 2 tab PO ASDIRECTED PRN 09/27/20 [History] Aspirin [Adult Aspirin Regimen] 81 mg PO BEDTIME 09/27/20 [History] traZODone HCl [Trazodone HCl] 300 mg PO BEDTIME 09/27/20 [History] Ibuprofen 600 mg PO TID #30 tablet 10/01/20 [Rx] oxyCODONE 5 mg PO Q6H PRN #20 tab 10/01/20 [Rx] Past Medical History HEENT History: Reports: Other (See Below) Other HEENT History: top and bottom dentures, reading glasses Cardiovascular History: Reports: Other (See Below) Other Cardiovascular History: takes lisinopril to protect her kidneys due to diabetes Respiratory History: Reports: Sleep Apnea, Other (See Below) Other Respiratory History: uses CPAP Gastrointestinal History: Reports: Diverticulosis, Hepatitis Other Gastrointestinal History: states hepatitis in her teens, not sure what kind, hx diverticulitis Genitourinary History: Reports: None LINUX ADMIN History: Reports: Musculoskeletal History: Reports: Arthritis, Back Pain, Chronic Neurological History: Reports: Concussion, Neuropathy, Peripheral, Other (See Below) Other Neuro History: essential tremors-left hand Psychiatric History: Reports: Depression, Suicide Attempt Endocrine/Metabolic History: Reports: Diabetes, Type II, Hypothyroidism, Obesity/BMI 30+ Hematologic History: Reports: None Immunologic History: Reports: None Oncologic (Cancer) History: Reports: Breast Dermatologic History: Reports: None - Infectious Disease History Infectious Disease History: Reports: None Other Infectious Disease History: Chicken pox and Mumps as a child - Past Surgical History Head Surgeries/Procedures: Reports: None HEENT Surgical History: Reports: Naso-Sinus Surgery Cardiovascular Surgical History: Reports: None Respiratory Surgical History: Reports: None GI Surgical History: Reports: Colonoscopy Female Surgical History: Reports: Breast Biopsy, Hysterectomy Other Female Surgeries/Procedures: left breast lumpectomy for breast cancer Endocrine Surgical History: Reports: None Neurological Surgical History: Reports: None Musculoskeletal Surgical History: Reports: None Oncologic Surgical History: Reports: Biopsy of Breast Other Oncologic Surgeries/Procedures: chemo & radiation Dermatological Surgical History: Reports: None Social & Family History - Family History Family Medical History: No Pertinent Family History - Tobacco Use Tobacco Use Status *Q: Current Every Day Tobacco User Years of Tobacco use: 53 Packs/Tins Daily: 0.5 - Caffeine Use Caffeine Use: Reports: Coffee - Recreational Drug Use Recreational Drug Use: No ED ROS GENERAL - Review of Systems Review Of Systems: See Below Constitutional: Reports: No Symptoms HEENT: Reports: No Symptoms Respiratory: Reports: No Symptoms Cardiovascular: Reports: No Symptoms Endocrine: Reports: No Symptoms GI/Abdominal: Reports: Abdominal Pain, Constipation : Reports: No Symptoms Musculoskeletal: Reports: No Symptoms Skin: Reports: No Symptoms Neurological: Reports: No Symptoms Psychiatric: Reports: No Symptoms Hematologic/Lymphatic: Reports: No Symptoms Immunologic: Reports: No Symptoms ED EXAM, GI/ABD - Physical Exam Exam: See Below Exam Limited By: No Limitations General Appearance: Alert, WD/WN, No Apparent Distress Eyes: Bilateral: EOMI Throat/Mouth: Normal Inspection Head: Atraumatic Neck: Normal Inspection Respiratory/Chest: No Respiratory Distress, Lungs Clear, Normal Breath Sounds Cardiovascular: Normal Peripheral Pulses, Regular Rate, Rhythm GI/Abdominal Exam: Normal Bowel Sounds, Soft, Non-Tender Back Exam: Normal Inspection Extremities: Normal Inspection Neurological: Alert, Oriented, CN II-XII Intact, Normal Cognition, Normal Gait Course - Vital Signs Last Recorded V/S: Last Vital Signs Temp 97.6 F 10/16/21 16:56 Pulse 106 H 10/16/21 16:56 Resp 18 10/16/21 16:56 BP 154/74 H 10/16/21 16:56 Pulse Ox 94 L 10/16/21 16:56 - Orders/Labs/Meds Orders: Active Orders 24 hr Category Date Time Status LACTIC ACID [CHEM] Stat Lab 10/16/21 18:50 Received Sodium Chloride 0.9% [Normal Saline] 1,000 ml Med 10/16/21 18:10 Active IV .Bolus Medication Orders Sodium Chloride (Normal Saline) 1,000 mls @ 1,000 mls/hr IV .Bolus ONE Stop: 10/16/21 19:09 Last Admin: 10/16/21 18:39 Dose: 1,000 mls/hr Documented by: STU Labs: Laboratory Tests 10/16/21 10/16/21 10/16/21 Range/Units 17:16 17:16 17:16 WBC 13.23 H (4.0-11.0) K/uL RBC 4.51 (4.30-5.90) M/uL Hgb 14.0 (12.0-16.0) g/dL Hct 41.9 (36.0-46.0) % MCV 92.9 (80.0-98.0) fL MCH 31.0 (27.0-32.0) pg MCHC 33.4 (31.0-37.0) g/dL RDW Std Deviation 46.5 (28.0-62.0) fl RDW Coeff of Natalya 14 (11.0-15.0) % Plt Count 260 (150-400) K/uL MPV 11.80 (7.40-12.00) fL Neut % (Auto) 68.5 (48.0-80.0) % Lymph % (Auto) 21.7 (16.0-40.0) % Gila % (Auto) 8.5 (0.0-15.0) % Eos % (Auto) 1.2 (0.0-7.0) % Baso % (Auto) 0.1 (0.0-1.5) % Neut # (Auto) 9.1 H (1.4-5.7) K/uL Lymph # (Auto) 2.9 H (0.6-2.4) K/uL Gila # (Auto) 1.1 H (0.0-0.8) K/uL Eos # (Auto) 0.2 (0.0-0.7) K/uL Baso # (Auto) 0.0 (0.0-0.1) K/uL Nucleated RBC % 0.0 /100WBC Nucleated RBCs # 0 K/uL Sodium 136 (136-145) mmol/L Potassium 4.5 (3.5-5.1) mmol/L Chloride 100 (98-107) mmol/L Carbon Dioxide 26.6 (21.0-32.0) mmol/L BUN 10 (7.0-18.0) mg/dL Creatinine 0.9 (0.6-1.0) mg/dL Est Cr Clr Drug Dosing 49.49 mL/min Estimated GFR (MDRD) > 60.0 ml/min Glucose 317 H (74-106) mg/dL Lactic Acid (0.4-2.0) mmol/L Calcium 9.6 (8.5-10.1) mg/dL Total Bilirubin 0.4 (0.2-1.0) mg/dL AST 14 L (15-37) IU/L ALT 15 (14-63) IU/L Alkaline Phosphatase 101 (46-116) U/L Total Protein 7.9 (6.4-8.2) g/dL Albumin 3.6 (3.4-5.0) g/dL Globulin 4.3 H (2.6-4.0) g/dL Albumin/Globulin Ratio 0.8 L (0.9-1.6) Lipase 329 (73-393) U/L 10/16/21 Range/Units 17:28 WBC (4.0-11.0) K/uL RBC (4.30-5.90) M/uL Hgb (12.0-16.0) g/dL Hct (36.0-46.0) % MCV (80.0-98.0) fL MCH (27.0-32.0) pg MCHC (31.0-37.0) g/dL RDW Std Deviation (28.0-62.0) fl RDW Coeff of Natalya (11.0-15.0) % Plt Count (150-400) K/uL MPV (7.40-12.00) fL Neut % (Auto) (48.0-80.0) % Lymph % (Auto) (16.0-40.0) % Gila % (Auto) (0.0-15.0) % Eos % (Auto) (0.0-7.0) % Baso % (Auto) (0.0-1.5) % Neut # (Auto) (1.4-5.7) K/uL Lymph # (Auto) (0.6-2.4) K/uL Gila # (Auto) (0.0-0.8) K/uL Eos # (Auto) (0.0-0.7) K/uL Baso # (Auto) (0.0-0.1) K/uL Nucleated RBC % /100WBC Nucleated RBCs # K/uL Sodium (136-145) mmol/L Potassium (3.5-5.1) mmol/L Chloride (98-107) mmol/L Carbon Dioxide (21.0-32.0) mmol/L BUN (7.0-18.0) mg/dL Creatinine (0.6-1.0) mg/dL Est Cr Clr Drug Dosing mL/min Estimated GFR (MDRD) ml/min Glucose (74-106) mg/dL Lactic Acid 3.3 H* (0.4-2.0) mmol/L Calcium (8.5-10.1) mg/dL Total Bilirubin (0.2-1.0) mg/dL AST (15-37) IU/L ALT (14-63) IU/L Alkaline Phosphatase (46-116) U/L Total Protein (6.4-8.2) g/dL Albumin (3.4-5.0) g/dL Globulin (2.6-4.0) g/dL Albumin/Globulin Ratio (0.9-1.6) Lipase (73-393) U/L Meds: Medications Generic Name Dose Route Start Last Admin Trade Name Freq PRN Reason Stop Dose Admin Sodium Chloride 1,000 mls @ 1,000 mls/hr 10/16/21 18:10 10/16/21 18:39 Normal Saline IV 10/16/21 19:09 1,000 mls/hr .Bolus ONE Administration Discontinued Medications Generic Name Dose Route Start Last Admin Trade Name Farooq PRN Reason Stop Dose Admin Iopamidol 100 ml 10/16/21 18:20 10/16/21 18:21 Iopamidol 755 Mg/Ml 500 Ml Multipack Bottle IVPUSH 10/16/21 18:21 100 ml ONETIME STA Administration Ketorolac Tromethamine 30 mg 10/16/21 17:30 10/16/21 17:35 Ketorolac 30 Mg/Ml Sdv IVPUSH 10/16/21 17:31 30 mg ONETIME ONE Administration - Re-Assessments/Exams Free Text/Narrative Re-Assessment/Exam: 10/16/21 19:[address] shows enteritis patient denies having bowel movements and feels a lot better she did have a slight elevation of her lactate we will give IV fluids and repeat if lactate is normal patient can be discharged home. Departure - Departure Time of Disposition: 19:06 Disposition: Home, Self-Care 01 Condition: Good Clinical Impression: Constipation, Enteritis - Discharge Information *PRESCRIPTION DRUG MONITORING PROGRAM REVIEWED*: Not Applicable *COPY OF PRESCRIPTION DRUG MONITORING REPORT IN PATIENT ALFA: Not Applicable Instructions: Constipation, Adult, [id number] Forms: ED Department Discharge Additional Instructions: You are seen today for constipation. We did a CAT scan to make sure you did not have any type of bowel obstruction. Your CAT scan did not show any obstruction did show what is called enteritis. You can just take some antibiotics and also try to keep taking stool softeners. Please follow-up with your primary care physician if you have any other concerning signs or symptoms. The following information is given to patients seen in the emergency department who are being discharged to home. This information is to outline your options for follow-up care. We provide all patients seen in our emergency department with a follow-up referral. The need for follow-up, as well as the timing and circumstances, are variable depending upon the specifics of your emergency department visit. If you don't have a primary care physician on staff, we will provide you with a referral. We always advise you to contact your personal physician following an emergency department visit to inform them of the circumstance of the visit and for follow-up with them and/or the need for any referrals to a consulting specialist. The emergency department will also refer you to a specialist when appropriate. This referral assures that you have the opportunity for follow-up care with a specialist. All of these measure are taken in an effort to provide you with optimal care, which includes your follow-up. Under all circumstances we always encourage you to contact your private physician who remains a resource for coordinating your care. When calling for follow-up care, please make the office aware that this follow-up is from your recent emergency room visit. If for any reason you are refused follow-up, please contact the [facility] Emergency Department at and asked to speak to the emergency department charge nurse. Please follow up with your primary care physician. If you do not have a primary care physician, see below: [facility] [address] [place] [id number] [facility] [address] [place] [address] Sepsis Event Note (ED) - Evaluation Sepsis Screening Result: No Definite Risk - Focused Exam Vital Signs: Vital Signs Temp Pulse Resp BP Pulse Ox 10/16/21 16:56 97.6 F 106 H 18 154/74 H 94 L - My Orders Last 24 Hours: My Active Orders 10/16/21 18:10 Sodium Chloride 0.9% [Normal Saline] 1,000 ml IV .Bolus 10/16/21 18:50 LACTIC ACID [CHEM] Stat - Assessment/Plan Last 24 Hours: My Active Orders 10/16/21 18:10 Sodium Chloride 0.9% [Normal Saline] 1,000 ml IV .Bolus 10/16/21 18:50 LACTIC ACID [CHEM] Stat Plan: Patient is a 66-year-old female presents today for constipation. Patient abdomen is soft on exam nontender but she states she is having difficulty passin g gas and having pain when she eats. We will obtain labs CT scan and reassess
[2021-10-16] MEDS ORDERED: Ketorolac 30 MG/ML SDV IVPUSH ONE (17:30)
[2021-10-16 17:53] LABS: BLOOD UREA NITROGEN,BUN 10 mg/dL (7.0-18.0); CARBON DIOXIDE,CO2 26.6 mmol/L (21.0-32.0); CHLORIDE,CL 100 mmol/L (98-107); GLUCOSE RANDOM 317 mg/dL (74-106); POTASSIUM,K 4.5 mmol/L (3.5-5.1); SODIUM,NA 136 mmol/L (136-145)
[2021-10-16] MEDS ORDERED: Sodium Chloride 0.9% 1,000 ML IV ONE (18:10)
[2021-10-16] MEDS ORDERED: Iopamidol 755 MG/ML 500 ML Multipack Bottle IVPUSH STA (18:20)
--- NOTE | 2021-10-16 18:59 | CT ---
INDICATION: Constipation, rule out SBO. TECHNIQUE: CT of the abdomen and pelvis with 100 cc Isovue 370 IV contrast. Coronal and sagittal reconstructions. COMPARISON: CT of the abdomen and pelvis 07/22/2015. FINDINGS: Diffuse hepatic steatosis. Cholelithiasis. No evidence of gallbladder inflammation. The spleen, pancreas, and adrenal glands are negative. Splenule. Hepatic and portal veins are patent. Symmetric enhancement of the kidneys. Small right renal cyst. No hydronephrosis or ureteral dilation. No obstructing urinary calculi identified. The bladder is normal in appearance. Hysterectomy. No abnormality in the adnexa. No evidence of small bowel obstruction. There are multiple nondistended fluid-filled loops of distal small bowel with fold thickening which may represent a nonspecific enteritis. Colonic diverticulosis without evidence of diverticulitis. Fluid throughout the colon which can be seen with diarrhea. The ascending colon is mildly distended measuring 6.5 cm in diameter. The appendix is not identified, however there are no secondary signs of inflammation in the right lower quadrant. No intraperitoneal free air or fluid. Aortoiliac vascular calcifications. No lymphadenopathy. Lower lumbar facet arthropathy. Mild atelectasis or scarring in the anterior left lower lobe and lingula. Stable 3 mm noncalcified pulmonary nodule in the lateral left lower lobe (series 202, image 33). This is unchanged since 2015 and should be benign. Postoperative changes of the left breast. Coronary artery calcifications. IMPRESSION: 1. Multiple fluid-filled loops of distal small bowel with fold thickening may represent a nonspecific enteritis. There is also fluid throughout the colon which can be seen with diarrhea. No evidence of bowel obstruction. 2. Diffuse hepatic steatosis. Please note that all CT scans at this facility use dose modulation, iterative reconstruction, and/or weight-based dosing when appropriate to reduce radiation dose to as low as reasonably achievable. Dictated by Lupe Gallardo MD @ 10/16/2021 6:58:02 PM (Electronically Signed)
[2021-10-16 20:11] VITALS: BP 134/86; PULSE 76
== END 2021-10-16 19:40 | disposition home or self-care (01) ==
LOC: MW.ED 16:38
DX: K59.00 Constipation, unspecified (principal); K52.9 Noninfective gastroenteritis and colitis, unspecified; M19.90 Unspecified osteoarthritis, unspecified site; E11.42 Type 2 diabetes mellitus with diabetic polyneuropathy; E03.9 Hypothyroidism, unspecified; E66.9 Obesity, unspecified; Z68.36 Body mass index [BMI] 36.0-36.9, adult; Z72.0 Tobacco use; Z79.82 Long term (current) use of aspirin; Z79.84 Long term (current) use of oral hypoglycemic drugs; Z79.899 Other long term (current) drug therapy
CPT/HCPCS: 36415; 74177; 80053; 83605; 83690; 85025; 96374; 99284; J1885; J7030; Q9967

== ENCOUNTER 2021-10-17 19:30 | Emergency (ER) | payer MEDICARE, MEDICAID ==
[2021-10-17] MEDS ORDERED: Sodium Chloride 0.9% 10 ML Syringe FLUSH PRN (19:36)
[2021-10-17] MEDS ORDERED: Sodium Chloride 0.9% 2.5 ML Syringe FLUSH PRN (19:36)
[2021-10-17 20:31] LABS: BLOOD UREA NITROGEN,BUN 8 mg/dL (7.0-18.0); CHLORIDE,CL 95 mmol/L (98-107); GLUCOSE RANDOM 269 mg/dL (74-106); LIPASE 330 U/L (73-393); POTASSIUM,K 4.9 mmol/L (3.5-5.1); SODIUM,NA 134 mmol/L (136-145)
[2021-10-17 21:05] VITALS: BP 154/55; PULSE 88
== END 2021-10-17 21:07 | disposition home or self-care (01) ==
LOC: MW.ED 19:30
DX: K59.00 Constipation, unspecified (principal); E11.9 Type 2 diabetes mellitus without complications; E03.9 Hypothyroidism, unspecified; E66.9 Obesity, unspecified; Z68.36 Body mass index [BMI] 36.0-36.9, adult; Z79.84 Long term (current) use of oral hypoglycemic drugs; Z79.899 Other long term (current) drug therapy
CPT/HCPCS: 36415; 80053; 83690; 85025; 99283

== ENCOUNTER 2022-11-01 11:39 | Emergency (ER) | payer MEDICARE, MEDICAID ==
[2022-11-01 15:22] VITALS: BP 148/62; PULSE 73
[2022-11-01] MEDS ORDERED: Acetaminophen/HYDROcodone 325-10 MG Tab PO ONE (15:25)
== END 2022-11-01 16:31 | disposition home or self-care (01) ==
LOC: MW.ED 11:39
DX: S62.617A Displaced fracture of proximal phalanx of left little finger, initial encounter for closed fracture (principal); M19.90 Unspecified osteoarthritis, unspecified site; E11.42 Type 2 diabetes mellitus with diabetic polyneuropathy; E03.9 Hypothyroidism, unspecified; E66.9 Obesity, unspecified; Z68.34 Body mass index [BMI] 34.0-34.9, adult; Z72.0 Tobacco use; Z79.84 Long term (current) use of oral hypoglycemic drugs; Z79.899 Other long term (current) drug therapy; W18.2XXA Fall in (into) shower or empty bathtub, initial encounter
CPT/HCPCS: 29125; 73130-26-LT; 73130-LT; 99283-25

== ENCOUNTER 2024-07-01 13:26 | Emergency (ER) | payer MEDICARE ==
[2024-07-01] MEDS: Magnesium Citrate Solution 296 ML Bottle PO ONE (18:28)
[2024-07-01 22:57] VITALS: BP 139/60; PULSE 82
== END 2024-07-01 18:33 | disposition home or self-care (01) ==
LOC: MW.ED 13:26
DX: K59.00 Constipation, unspecified (principal); E11.40 Type 2 diabetes mellitus with diabetic neuropathy, unspecified; E66.9 Obesity, unspecified; E03.9 Hypothyroidism, unspecified; F17.210 Nicotine dependence, cigarettes, uncomplicated; Z90.710 Acquired absence of both cervix and uterus; Z79.84 Long term (current) use of oral hypoglycemic drugs; Z79.890 Hormone replacement therapy; Z79.899 Other long term (current) drug therapy; Z75.8 Other problems related to medical facilities and other health care; Z68.37 Body mass index [BMI] 37.0-37.9, adult
CPT/HCPCS: 74018; 99283; A9270